=== PATIENT | female | born 1975 | race Caucasian/White ===

== ENCOUNTER 2024-10-31 05:46 | Inpatient (IN) | payer OTHER ==
[2024-10-28 13:26] VITALS: BMI 45.0
[2024-10-31 06:41] LABS: Hematocrit 39.7 % (36.0-47.0); Hemoglobin 13.3 g/dL (12.0-16.0); Mean Corpuscular Hemoglobin 33.2 pg (27.0-31.0); Mean Corpuscular Volume 99.0 fL (78.0-98.0); Platelet Count 295 10x3/uL (130-400); Red Blood Cell (RBC) Count 4.01 mill/uL (4.20-5.40); White Blood Cell (WBC) Count 8.50 10x3/uL (4.8-10.8)
[2024-10-31] MEDS ORDERED: PROPOFOL 20 ML ONE (06:45)
[2024-10-31] MEDS ORDERED: Rocuronium Bromide 10 MG/ML (10ML VIAL) ONE (06:45)
[2024-10-31 06:52] LABS: Anion Gap 14 mmol/L (10-20); BUN (Urea Nitrogen) 15 mg/dL (7.0-18.7); Calc. Creatinine Clearance 177 mL/min (70-130); Calcium 8.6 mg/dL (7.8-10.44); Carbon Dioxide 24 mmol/L (22-29); Chloride 106 mmol/L (98-107); Glucose 103 mg/dL (70-105); Potassium 4.2 mmol/L (3.5-5.1); Sodium 140 mmol/L (136-145)
[2024-10-31] MEDS ORDERED: CEFAZOLIN 2 GM VIAL ONE (07:00)
[2024-10-31] MEDS ORDERED: Ketorolac Tromethamine 30 MG (1 mL) VIAL ONE (08:16)
[2024-10-31] MEDS ORDERED: Ondansetron PF 4 MG/2 ML Vial ONE (08:16)
[2024-10-31] MEDS ORDERED: SUGAMMADEX SODIUM 200 MG/2 ML VIAL ONE (08:25)
[2024-10-31] MEDS ORDERED: diphenhydrAMINE 50 MG/ML VIAL IVP PRN (08:41)
[2024-10-31] MEDS ORDERED: Ondansetron PF 4 MG/2 ML Vial IVP PRN (08:41)
[2024-10-31] MEDS ORDERED: Mag-Al 1200 mg/1200 mg/30 ML UDCUP PO PRN (08:41)
[2024-10-31] MEDS ORDERED: HYDROcodone/Acetaminophen 10/325 mg Tablet PO PRN (08:41)
[2024-10-31] MEDS ORDERED: Acetaminophen 325 MG TAB PO PRN (08:41)
[2024-10-31] MEDS ORDERED: HYDROmorphone 0.5 MG/0.5 ML SYRINGE ONE ×3 (08:57→09:38)
[2024-10-31] MEDS: Losartan 25 MG TAB PO SCH (10:42)
[2024-10-31] MEDS: HYDROcodone/Acetaminophen 10/325 mg Tablet PO PRN (13:11)
[2024-10-31] MEDS: Cyclobenzaprine 10 MG TAB PO PRN (13:11)
[2024-11-01 11:12] VITALS: BP 168/94; TEMP 97.6
== END 2024-11-01 13:25 | disposition home or self-care (01) | DRG 428 ==
LOC: SURG A 05:46
PROVIDERS: ADMIT Neurological Surgery; ATTEND Neurological Surgery
PROC: 0SP304Z Removal of Internal Fixation Device from Lumbosacral Joint, Open Approach (ICD-10-PCS; principal; 2024-10-31)
PROC: 0SG00AJ Fusion of Lumbar Vertebral Joint with Interbody Fusion Device, Posterior Approach, Anterior Column, Open Approach (ICD-10-PCS; 2024-10-31)
PROC: 0SB20ZZ Excision of Lumbar Vertebral Disc, Open Approach (ICD-10-PCS; 2024-10-31)
PROC: 0SG1071 Fusion of 2 or more Lumbar Vertebral Joints with Autologous Tissue Substitute, Posterior Approach, Posterior Column, Open Approach (ICD-10-PCS; 2024-10-31)
PROC: 0SG3071 Fusion of Lumbosacral Joint with Autologous Tissue Substitute, Posterior Approach, Posterior Column, Open Approach (ICD-10-PCS; 2024-10-31)
DX: M51.16 Intervertebral disc disorders with radiculopathy, lumbar region (principal); Z98.890 Other specified postprocedural states; Z79.899 Other long term (current) drug therapy
CPT/HCPCS: 80048; 85027; 93005; 93010; C1713; C1889; J1100; J1171; J1885; J2405; J2704; J3010; J3373; Q0169